=== PATIENT | male | born 1980 | race African-American/Black ===

== ENCOUNTER 2017-05-08 22:24 | Emergency (ER) | payer OTHER ==
[~2017-05-08] VITALS: Ht 177.8 cm; Wt 74.8 kg
[2017-05-08] MEDS ORDERED: PERCOCET 5-3251 EACH PO (23:33)
[2017-05-09 00:50] VITALS: BP 130/91
== END 2017-05-09 00:52 | disposition home or self-care (01) ==
LOC: ER 22:24
DX: T23.291A Burn of second degree of multiple sites of right wrist and hand, initial encounter (principal); T25.231A Burn of second degree of right toe(s) (nail), initial encounter; F10.99 Alcohol use, unspecified with unspecified alcohol-induced disorder; X12.XXXA Contact with other hot fluids, initial encounter; Y93.G3 Activity, cooking and baking; Y92.89 Other specified places as the place of occurrence of the external cause; Y99.8 Other external cause status